=== PATIENT | female | born 1995 | race Caucasian/White ===

== ENCOUNTER 2016-12-29 05:48 | Emergency (ER) | payer MEDICAID ==
[~2016-12-29] VITALS: Ht 154.9 cm; Wt 71.8 kg
[~2016-12-29 05:48] MED LIST: FERR-43 PO; FOLI-43 PO; PREN-88 PO
[2016-12-29 05:54] VITALS: BP 111/73
== END 2016-12-29 09:48 | disposition left against medical advice (07) ==
LOC: ER 08:06
DX: R07.9 Chest pain, unspecified (principal); Z53.21 Procedure and treatment not carried out due to patient leaving prior to being seen by health care provider
CPT/HCPCS: 93005

== ENCOUNTER 2018-12-05 01:29 | Emergency (ER) | payer MEDICAID ==
[~2018-12-05] VITALS: Ht 154.9 cm; Wt 80.0 kg
[2018-12-05 04:05] VITALS: BP 112/70
== END 2018-12-05 04:08 | disposition home or self-care (01) ==
LOC: ER 01:29
DX: O90.89 Other complications of the puerperium, not elsewhere classified (principal); Z79.899 Other long term (current) drug therapy
CPT/HCPCS: 99283; Z7610; 12002

== ENCOUNTER 2019-08-28 16:25 | Emergency (ER) | payer MEDICAID ==
[~2019-08-28] VITALS: Ht 154.9 cm; Wt 83.0 kg
[2019-08-28] MEDS ORDERED: ALBUTEROL (0.083%) 2.5MG/3ML NEB HHN STA (17:39)
[2019-08-28] MEDS ORDERED: IPRATROPIUM BROMIDE (0.02%) 0.5MG/2.5ML NEB HHN STA (17:39)
[2019-08-28 18:08] LABS: BASOPHILS % 1.2 % (0.0-2.0); EOSINOPHILS % 1.3 % (0.0-5.0); HEMATOCRIT. 37.7 % (36.0-48.0); HEMOGLOBIN. 12.9 g/dL (12.0-16.0); LYMPHOCYTES % 37.9 % (20.0-50.0); MEAN CORPUSCULAR HEMOGLOBIN 30.6 pg (28.0-32.0); MEAN CORPUSCULAR VOLUME 89.2 fL (81.0-99.0); MONOCYTES % 4.9 % (2.0-8.0); NEUTROPHILS % 54.7 % (40.0-76.0); PLATELET 404 x1000/uL (130-400); RED BLOOD CELL COUNT 4.23 mill/uL (4.2-5.4); RED CELL DISTRIBUTION WIDTH 15.2 % (11.6-14.6)
[2019-08-28 18:21] LABS: CHLORIDE 111 mEq/L (98-107)
[2019-08-28 19:18] VITALS: BP 116/73
== END 2019-08-28 19:18 | disposition home or self-care (01) ==
LOC: ER 16:40
DX: R06.02 Shortness of breath (principal); Z98.890 Other specified postprocedural states; Z79.899 Other long term (current) drug therapy
CPT/HCPCS: 36415; 71045; 80053; 81025; 83880; 84484; 85025; 93005; 94640; 99285; Z7610

== ENCOUNTER 2019-09-02 01:34 | Emergency (ER) | payer MEDICAID ==
[~2019-09-02] VITALS: Ht 154.9 cm; Wt 81.0 kg
[2019-09-02 02:03] VITALS: BP 119/76
[2019-09-02] MEDS ORDERED: IPRATROPIUM/ALBUTEROL 0.5-3(2.5)MG/3ML NEB HHN ONE (03:15)
[2019-09-02] MEDS ORDERED: DEXTROSE 50% WATER 50ML SYRINGE IV ONE (03:47)
== END 2019-09-02 04:11 | disposition home or self-care (01) ==
LOC: ER 01:34
DX: J06.9 Acute upper respiratory infection, unspecified (principal); Z98.890 Other specified postprocedural states
CPT/HCPCS: 94640; 99283; J7610; Z7610

== ENCOUNTER 2021-03-01 19:08 | Emergency (ER) | payer MEDICAID ==
[~2021-03-01] VITALS: Ht 154.9 cm; Wt 59.0 kg
[2021-03-01] MEDS ORDERED: FAMOTIDINE 20MG TABLET PO SCH (20:15)
[2021-03-01] MEDS ORDERED: ONDANSETRON 4MG ODT PO ONE (20:15)
[2021-03-01] MEDS ORDERED: OMEP-265 MT (22:35)
[2021-03-01] MEDS ORDERED: ONDA4TAB11 PO (22:35)
[2021-03-01 22:40] VITALS: BP 110/72
== END 2021-03-01 22:50 | disposition home or self-care (01) ==
LOC: ER 19:08
DX: K21.9 Gastro-esophageal reflux disease without esophagitis (principal); Z98.890 Other specified postprocedural states
CPT/HCPCS: 99283; Q0162

== ENCOUNTER 2021-05-10 04:01 | Emergency (ER) | payer MEDICAID ==
[~2021-05-10] VITALS: Ht 167.6 cm; Wt 68.0 kg
[~2021-05-10 04:01] MED LIST changes: +OMEP-265 MT; +ONDA4TAB11 PO
[2021-05-10 04:06] VITALS: BP 118/78
[2021-05-10] MEDS ORDERED: ONDANSETRON 4MG ODT PO STA (04:15)
[2021-05-10] MEDS ORDERED: VISCOUS LIDOCAINE 2% 15 ML UDC PO STA (04:15)
[2021-05-10] MEDS ORDERED: MAGNESIUM/ALUMINUM HYDROXIDE/SIMETHICONE 30ML UDC PO STA (04:15)
[2021-05-10 04:38] LABS: BASOPHILS % 0.3 % (0.0-2.0); EOSINOPHILS % 0.2 % (0.0-5.0); HEMATOCRIT. 35.2 % (36.0-48.0); HEMOGLOBIN. 11.7 g/dL (12.0-16.0); LYMPHOCYTES % 21.4 % (20.0-50.0); MEAN CORPUSCULAR HEMOGLOBIN 30.8 pg (28.0-32.0); MEAN CORPUSCULAR VOLUME 92.4 fL (81.0-99.0); MEAN PLATELET VOLUME 7.7 fl (7.4-10.4); MONOCYTES % 5.5 % (2.0-8.0); NEUTROPHILS % 72.6 % (40.0-76.0); PLATELET 349 x1000/uL (130-400); RED BLOOD CELL COUNT 3.81 mill/uL (4.2-5.4); RED CELL DISTRIBUTION WIDTH 13.9 % (11.6-14.6)
[2021-05-10] MEDS ORDERED: FAMOTIDINE 20MG/2ML VIAL IV STA (04:48)
[2021-05-10] MEDS ORDERED: METOCLOPRAMIDE HCL 10MG/2ML VIAL IV STA (04:48)
[2021-05-10] MEDS ORDERED: SODIUM CHLORIDE 0.9% 1,000 ML IV ONE (05:00)
[2021-05-10 05:07] LABS: CHLORIDE 111 mEq/L (98-107)
[2021-05-10 05:11] LABS: ETHANOL BLOOD < 10 mg/dL
[2021-05-10 05:30] LABS: CLARITY URINE CLEAR (CLEAR); COLOR URINE DARK YELLOW (YELLOW); KETONES URINE 4+ (NEGATIVE); LEUKOCYTE ESTERASE URINE NEGATIVE (NEGATIVE); NITRITE URINE NEGATIVE (NEGATIVE); OCCULT BLOOD URINE NEGATIVE (NEGATIVE); PH URINE 6.5 (4.5-8.0); PROTEIN URINE TRACE (NEGATIVE); SPECIFIC GRAVITY URINE 1.032 (1.005-1.030)
[2021-05-10 05:40] LABS: *AMPHETAMINES SCREEN URINE NEGATIVE (NEGATIVE); *BARBITURATES SCREEN URINE NEGATIVE (NEGATIVE)
[2021-05-10 05:41] LABS: *BENZODIAZEPINES SCREEN URINE NEGATIVE (NEGATIVE); *COCAINE SCREEN URINE NEGATIVE (NEGATIVE); CANNABINOID URINE SCREEN NEGATIVE (NEGATIVE); METHADONE URINE SCREEN NEGATIVE (NEGATIVE); OPIATES URINE SCREEN NEGATIVE (NEGATIVE); PHENCYCLIDINE URINE SCREEN NEGATIVE (NEGATIVE)
[2021-05-10] MEDS ORDERED: ONDA4TAB5 MT (06:51)
[2021-05-10] MEDS ORDERED: OMEP40CA20 MT (06:51)
== END 2021-05-10 06:59 | disposition home or self-care (01) ==
LOC: ER 04:01
DX: R10.13 Epigastric pain (principal); Z98.84 Bariatric surgery status; Z98.890 Other specified postprocedural states
CPT/HCPCS: 36415; 74176; 80053; 80305; 80320; 81003; 81025; 83690; 85025; 96361; 96374; 96375; 99284; J2765; J3490; J7030; Q0162; G0480

== ENCOUNTER 2024-11-23 02:10 | Emergency (ER) | payer SELFPAY ==
[~2024-11-23] VITALS: Ht 154.9 cm; Wt 62.8 kg
[~2024-11-23 02:10] MED LIST changes: +OMEP40CA20 MT; +ONDA-239 PO; -ONDA4TAB11 PO; +ONDA4TAB5 MT
[2024-11-23 02:20] VITALS: O2SAT 100
[2024-11-23 03:17] LABS: BASOPHILS % 0.6 % (0.0-2.0); DIFFERENTIAL COMMENT 0; EOSINOPHILS % 1.1 % (0.0-5.0); HEMATOCRIT. 30.3 % (36.0-48.0); HEMOGLOBIN. 9.6 g/dL (12.0-16.0); LYMPHOCYTES % 30.7 % (20.0-50.0); MEAN CORPUSCULAR HEMOGLOBIN 23.9 pg (28.0-32.0); MEAN CORPUSCULAR HGB CONC 31.7 g/dL (31.0-37.0); MEAN CORPUSCULAR VOLUME 75.5 fL (81.0-99.0); MONOCYTES % 4.7 % (2.0-8.0); NEUTROPHILS % 62.9 % (40.0-76.0); PLATELET 434 x1000/uL (130-400); RED BLOOD CELL COUNT 4.01 mill/uL (4.2-5.4); RED CELL DISTRIBUTION WIDTH 17.6 % (11.6-14.6); WHITE BLOOD COUNT 4.5 x1000/uL (4.5-11.0)
[2024-11-23 03:21] LABS: CHLORIDE 106 mEq/L (98-107); POTASSIUM 3.2 mEq/L (3.5-5.1); SODIUM 139 mEq/L (136-145)
[2024-11-23 03:22] LABS: CALCIUM 8.6 mg/dL (8.7-10.4); CARBON DIOXIDE 22 mEq/L (21-32)
[2024-11-23 03:25] LABS: HCG SCREEN NEGATIVE
[2024-11-23 03:27] LABS: CREATININE 0.7 mg/dL (0.6-1.0); GLUCOSE 100 mg/dL (70-105); UREA NITROGEN BLOOD 10 mg/dL (9-23)
[2024-11-23] MEDS: MAGNESIUM/ALUMINUM HYDROXIDE/SIMETHICONE 30ML UDC PO ONE (03:29)
[2024-11-23 03:58] LABS: TROPONIN I HIGH SENSITIVITY < 4 ng/L (3.0-34)
[2024-11-23] MEDS: SODIUM CHLORIDE 0.9% 500 ML IV ONE (03:58)
[2024-11-23] MEDS: IOHEXOL-350 100 ML BOTTLE ONE (05:15)
[2024-11-23] MEDS ORDERED: KETOROLAC 15MG/ML VIAL IV NR (05:30)
[2024-11-23] MEDS ORDERED: ACET-2708 MT (05:32)
[2024-11-23] MEDS ORDERED: OMEP40CA20 MT (05:36)
[2024-11-23] MEDS: VISCOUS LIDOCAINE 2% 15 ML UDC MM NR (05:56)
[2024-11-23 05:57] VITALS: BP 101/67; PULSE 84; RESP 16; TEMP 36.9; O2SAT 100
== END 2024-11-23 06:05 | disposition home or self-care (01) ==
LOC: ER 02:10
DX: R07.89 Other chest pain (principal); Z90.49 Acquired absence of other specified parts of digestive tract; Z79.899 Other long term (current) drug therapy; Z87.19 Personal history of other diseases of the digestive system
CPT/HCPCS: 99285; 96360; 71275; 71045; 80048; 81025; 84703; 85025; 85379; 84484; 36415; 93005; Q9967; J7040